=== PATIENT | male | born 2005 | race Caucasian/White ===

== ENCOUNTER 2023-01-18 12:08 | Emergency (ER) | payer OTHER ==
[2023-01-18] MEDS ORDERED: Ibuprofen 400 MG Tab PO ONE (12:44)
== END 2023-01-18 13:42 | disposition home or self-care (01) ==
LOC: DL.ED 12:08
DX: S80.11XA Contusion of right lower leg, initial encounter (principal); S80.12XA Contusion of left lower leg, initial encounter; W23.0XXA Caught, crushed, jammed, or pinched between moving objects, initial encounter
CPT/HCPCS: 73562; 99283; A9270

== ENCOUNTER 2023-03-12 04:18 | Emergency (ER) | payer OTHER ==
[2023-03-12] MEDS ORDERED: fentaNYL 100 MCG/2 ML SDV IVPUSH ONE (04:36)
[2023-03-12] MEDS ORDERED: Bacitracin Oint 1 GM U/D Packet TOP ONE ×2 (04:37→06:01)
[2023-03-12] MEDS ORDERED: Ondansetron 4 MG/2 ML SDV IVPUSH ONE (04:37)
[2023-03-12] MEDS ORDERED: Lactated Ringers 1,000 ML IV ONE (04:37)
[2023-03-12] MEDS ORDERED: Sodium Chloride 0.9% 10 ML Syringe FLUSH PRN (04:38)
[2023-03-12] MEDS ORDERED: Bacitracin Oint 1 GM U/D Packet ONE (05:11)
== END 2023-03-12 06:24 | disposition home or self-care (01) ==
LOC: DL.ED 04:18
DX: T22.232A Burn of second degree of left upper arm, initial encounter (principal); T23.232A Burn of second degree of multiple left fingers (nail), not including thumb, initial encounter; F17.210 Nicotine dependence, cigarettes, uncomplicated; X03.0XXA Exposure to flames in controlled fire, not in building or structure, initial encounter
CPT/HCPCS: 16020; 96374; 96375; 99282; 99283-25; A9270-GY; J2405; J3010; J3490; J7120